=== PATIENT | male | born 1975 | race Two or more races ===

== ENCOUNTER 2020-03-24 17:16 | Outpatient (REF) | payer OTHER, SELFPAY | END 2020-03-24 17:17 | disposition home or self-care (01) | LOC: HO.LAB 17:16 | PROVIDERS: Visit Provider Internal Medicine | DX: Z20.828 Contact with and (suspected) exposure to other viral communicable diseases (principal) | CPT/HCPCS: C9803; U0003 ==

== ENCOUNTER 2020-07-25 22:03 | Emergency (ER) | payer OTHER, SELFPAY ==
[2020-07-25 22:17] VITALS: BP 119/79; PULSE 98; RESP 16; TEMP 36.7; O2SAT 98; BMI 28.0
--- NOTE | 2020-07-25 22:52 | PC.NURSE ---
4 DAYS OF EYE PAIN, FEELS LIKE ROCKS IN EYES, DRAINAGE CREAM COLOR.
--- NOTE | 2020-07-25 23:07 | ED.EYEPROB ---
HPI - Eye Problem General Chief complaint: Eye Problems Stated complaint: allergies Time Seen by Provider: 07/25/20 22:32 Source: patient Mode of arrival: ambulatory Limitations: language barrier (Brazilian speaking only, line maintenance technician used to obtain information) History of Present Illness HPI Narrative: 44-year-old male who presents emergency department for evaluation of bilateral eye redness, pruritus, discharge and sore throat. The patient states that 6 days prior he got his 1st Moderna COVID-19 vaccination. He states that later that evening he developed itchiness and redness of his eyes which has gotten progressively worse. He states that he does have some slight pain behind both eyes, he states that the pain is mild. He believes that his eyes are also swollen. He states these had some blurred vision but is able to read and see without any difficulty. The patient took some Claritin with no relief his symptoms. He is concerned that his symptoms got worse, therefore came to emergency department for evaluation. The patient does not were contact lenses, he does not wear glasses. He believes that he may have gotten some dust in his eyes when he was rolling up a carpet, 6 days prior to evaluation. Related Data Previous Rx's Medication Instructions Recorded prednisone 60 mg PO DAILY 7 Days #21 tab 07/25/20 sulfacetamide-prednisolone 2 drp OPHTHALMIC (EYE) Q4H #10 ml 07/25/20 [Blephamide] Allergies Allergy/AdvReac Type Severity Reaction Status Date / Time No Known Allergies Allergy Verified 07/25/20 22:19 [No Known Allergies*] Review of Systems Review of Systems: Yes all other systems are reviewed and are negative [facility] Past Medical History [facility] Narrative: The patient has no medical problems. He denies tobacco use, he states he occasionally drinks alcohol, denies drug use. Medical History (Updated 07/25/20 @ 23:17 by Drake Reddy MD) Patient denies significant medical history Social History Social History Advance Directives: No Physical Exam Vital Signs: Vital Signs: Last Vital Signs Temp 98.0 F 07/25/20 22:17 Pulse 98 07/25/20 22:17 Resp 16 07/25/20 22:17 BP 119/79 07/25/20 22:17 Pulse Ox 98 07/25/20 22:17 Body Mass Index 28.0 Const: General: cooperative Orientation/consciousness: oriented to person and oriented to place Limitations: no limitations HENMT: Head: Yes normal to inspection, Yes normocephalic and Yes atraumatic Ears: external ears normal General nose exam: Normal external nose present Face and sinus: Yes normal facial exam Mouth: Normal oral and palatal mucosa present Throat: Yes posterior oropharynx normal Eyes: Other: Visual acuity was left 20/40, right 20/40 Periorbital: periorbital findings normal Eyelids: Yes eyelids normal Conjunctivae: conjunctival abnormal bilateral (Erythematous, swollen conjunctiva) discharge (Thick, yellowish discharge) Sclerae: sclerae normal Corneas: corneas normal Pupils: Equal, round and reactive pupils present Direct Ophthalmoscopy: normal light reflex Neck: Neck: Yes full ROM, Yes no lymphadenopathy, Yes no meningeal signs, Yes trachea midline, Yes supple and Yes other (The patient has a nonspecific dermatitis posterior neck) Chest: Chest palpation & inspection: normal inspection of the chest and normal palpation of entire chest wall Resp: Effort & Inspection: normal respiratory effort and able to speak in complete sentences Auscultation: clear to auscultation bilaterally Cardio: Rate: regular rate Rhythm: regular rhythm Heart sounds: S1 normal heart sound present, S2 normal heart sound present and no murmurs GI: Inspection: Yes normal to inspection Palpation (GI): Soft to palpation, nontender, no guarding, not rigid and No hepatosplenomegaly present : General: Yes no CVA tenderness Back/Spine/Pelvis: Back: no CVA tenderness Cervical Spine: normal cervical lordosis Thoracic/Lumbar Spine: thoracic and lumbar spine normal to inspection Skin: Lesions: no lesions Rashes: no rashes Wounds: no wounds Neuro: General: oriented to person, oriented to place and no meningeal signs Cranial nerves: Yes CN's II-XII intact bilaterally and Yes Equal, round and reactive pupils present Cognition (Neuro): normal cognition Motor exam (neuro): 5/5 motor strength present throughout Extrem: General: Yes normal to inspection and Yes full ROM Psych: Appearance: well kempt Mental Status: mental status grossly normal Speech and movement: Normal speech and movement present Affect: normal affect Attitude: cooperative Thought process: Normal thought process present Thought content: Normal thought content present Course Course Course Narrative: 44-year-old male who presents emergency department for evaluation 6 days of erythema, discharge, pruritus to bilateral eyes and sore throat. Physical examination revealed bilateral swollen, erythematous conjunctiva with a purulent-appearing discharge. The patient's visit acute these were 20/40 in both eyes. The patient also has a nonspecific dermatitis to these posterior aspect of his neck. The patient did get Moderna COVID-19 vaccination 6 days prior to evaluation. Patient's findings are consistent with bilateral conjunctivitis. At this time the patient will be treated for both an infectious and inflammatory conjunctivitis with Bleph 10 eyedrops and oral prednisone. The patient will need to follow-up with an allied health instructor in 2-3 days for re-evaluation. Discharge Plan Discharge Clinical Impression: Bacterial conjunctivitis, Dermatitis Patient Disposition: Home, Self-Care Instructions: Conjunctivitis (ED) Additional Instructions: Your eye findings are consistent with an allergic and bacterial conjunctivitis. Take prednisone 20 mg pills, 3 pills once a day for 7 days. Use the Bleph 10 Prescriptions: New Blephamide 10-0.2 % drops,suspension 2 drp ophthalmic (eye) Q4H Qty: 10 RF: 0 prednisone 20 mg tablet 60 mg PO DAILY 7 Days Qty: 21 RF: 0 Referrals: Guy Alba [Physician] - 3 days Print Language: Brazilian
[2020-07-25] MEDS: predniSONE 20 MG TABLET 60 MG PO (23:36)
== END 2020-07-26 00:12 | disposition home or self-care (01) ==
PROVIDERS: Emergency Provider Emergency Medicine Emergency Medical Services
DX: H10.9 Unspecified conjunctivitis (principal); L30.9 Dermatitis, unspecified
CPT/HCPCS: 99283; 99284

== ENCOUNTER 2020-08-17 06:01 | Emergency (ER) | payer OTHER, SELFPAY ==
--- NOTE | 2020-08-17 06:21 | PC.NURSE ---
TALKING WITH PATIENT REPORTING RECENTLY HERE FOR SIMILAR COMPLAINT. HAVING EYE REDNESS, STATING OUT OF EYE SOLUTION HE PREVIOUS RECEIVED AT LAST VISIT EARLIER THIS MONTH. PATIENT REPORTS BEING UNABLE TO FOLLOW UP WITH EYE DOCTOR DUE TO LACK OF INSURANCE. PATIENTS NEUROS INTACT, NO DEFICIT NOTED.
[2020-08-17 07:15] VITALS: BP 115/76; PULSE 51; RESP 16; TEMP 36.4; O2SAT 97; BMI 26.5
--- NOTE | 2020-08-17 07:50 | ED.EYEPROB ---
HPI - Eye Problem General Chief complaint: Eye Problems Stated complaint: Blurry vision Time Seen by Provider: 08/17/20 07:42 Source: patient Mode of arrival: ambulatory Limitations: no limitations History of Present Illness HPI Narrative: Patient comes emergency room complaining of itchy eyes. 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 Patient states he was seen here at the beginning of July, he was prescribed oral prednisone and blood from my drops. Patient states that his insurance would not cover the eyedrops and could not afford the drops. Patient states that over last 3 weeks, he has had ongoing itchy eyes, watery eyes. Patient states that for the last 2-3 weeks his eye vision has been blurry, but he still able to see well enough to do his daily activities. Related Data Previous Rx's Medication Instructions Recorded prednisone 60 mg PO DAILY 7 Days #21 tab 07/25/20 sulfacetamide-prednisolone 2 drp OPHTHALMIC (EYE) Q4H #10 ml 07/25/20 [Blephamide] ketotifen fumarate [Allergy Eye 1 drp OPHTHALMIC (EYE) Q12H PRN #5 08/17/20 (ketotifen)] ml Allergies Allergy/AdvReac Type Severity Reaction Status Date / Time No Known Allergies Allergy Verified 07/25/20 22:19 [No Known Allergies*] Review of Systems Review of Systems: Constitutional : No Weight loss, No Fever, No Chills, No Night Sweats, No Fatigue, No Malaise ENT/Mouth : No Hearing loss, No Ear Pain, No Nasal Congestion, No Sinus Pain, No Hoarseness, No sore throat, No Rhinorrhea, No Swallowing Difficulty Eyes: No Eye Pain, No Swelling, complaining of bilateral eye redness, no foreign body sensation, itchy/watery eyes Cardiovascular : No Chest Pain, No SOB, No Dyspnea on Exertion, No Orthopnea, No Edema, No Palpitations Respiratory : No Cough, No Sputum, No Wheezing, No Smoke Exposure, No Dyspnea Gastrointestinal : No Nausea, No Vomiting, No Diarrhea, No Constipation, No abdominal Pain, No Hematochezia, No Melena Genitourinary : no irregular bleeding, No Dysuria, No Urinary Frequency, No Hematuria, No Urinary Incontinence, No Urgency, No Flank Pain, No Urinary Flow Changes, No Hesitancy Musculoskeletal : No joint pain, No Myalgias, No Joint Swelling Skin : No Skin Lesions, No rash Neuro : No Weakness, No Numbness, No Paresthesias, No Loss of Consciousness, No Dizziness, No Headache Psych : No Anxiety/Panic, No Depression, No SI/HI/AH/VH, No Social Issues, Heme/Lymph: No Bruising, No Bleeding,No Lymphadenopathy Endocrine : No Polyuria, No Polydipsia, No Temperature Intolerance [facility] Past Medical History Medical History Patient denies significant medical history Social History Social History Advance Directives: No Advance Directives Information Provided: No Physical Exam Vital Signs: Vital Signs: Last Vital Signs Temp 97.6 F 08/17/20 07:15 Pulse 46 L 08/17/20 08:18 Resp 18 08/17/20 08:18 BP 124/86 08/17/20 08:18 Pulse Ox 99 08/17/20 08:18 Body Mass Index 26.5 Appearance: Alert. Oriented X3. No acute distress. Eyes: Pupils equal, round and reactive to light. Mildly Erythematous bilaterally, no discharge. Bilateral pterygium ENT: Pharynx normal. Neck: Normal inspection. Neck supple. No lymph nodes noted. No crepitus CVS: Normal heart rate and rhythm. Pulses normal. Normal S1 and S2 Respiratory: No respiratory distress. Breath sounds normal. No Wheezing. No rales Abdomen: Soft and nontender. No rigidity. No distention. good BS x4 Skin: Skin warm and dry. Normal skin color. Normal skin turgor. Extremities: No lower extremity edema. No lower extremity edema. No Lacerations. No Rash Neuro: Oriented X 3. No motor deficit. No sensory deficit. Moving all extermities. No slurred speech. Course Course Course Narrative: On previous visit, patient's visual acuity test on the right on the left was 20/40 bilaterally, this time, 20/50 R, 20/70L I discussed with the patient that at this time he does not seem to have infection, it has been well over 3 weeks since he was diagnosed with conjunctivitis. With antibiotic, patient no longer having any discharge which he did 3 weeks ago. 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 I discussed with the patient that he needs to follow up with the software team leader, patient also would like to be seen by the software team leader for chronic pterygium. Patient now states that his blurry vision has been ongoing for over a month now. MDM - Eye Problem Lab Data Labs: Lab Results 08/17/20 Range/Units 08:00 POC Glucose 102 (60-115) mg/dL Discharge Plan Discharge Clinical Impression: Chemosis of conjunctiva of both eyes Patient Disposition: Home, Self-Care Instructions: Blurred Vision (ED) Additional Instructions: Please call Ophthalmology today to schedule an appointment. Please follow-up with your primary care physician tomorrow. If you have any worsening or new symptoms, please return to the emergency room or call 911 Prescriptions: New ketotifen fumarate [Allergy Eye (ketotifen)] 0.025 % (0.035 %) drops 1 drp ophthalmic (eye) Q12H PRN (Reason: allergy symptoms) Qty: 5 RF: 0 No Action Blephamide 10-0.2 % drops,suspension 2 drp ophthalmic (eye) Q4H Qty: 10 RF: 0 prednisone 20 mg tablet 60 mg PO DAILY 7 Days Qty: 21 RF: 0 Referrals: Guy Alba [Physician] - 08/17/20 9:09 am
[2020-08-17 08:12] LABS: Glucose, Whole Blood 102 mg/dL (60-115)
[2020-08-17 08:18] VITALS: BP 124/86; PULSE 46; RESP 18; O2SAT 99
== END 2020-08-17 09:41 | disposition home or self-care (01) ==
PROVIDERS: Emergency Provider Emergency Medicine
DX: H11.423 Conjunctival edema, bilateral (principal); H11.0 Pterygium of eye
CPT/HCPCS: 82947; 99283; 99284

== ENCOUNTER 2020-09-21 10:00 | Emergency (ER) | payer MEDICAID, SELFPAY ==
[2020-09-21 10:07] VITALS: BP 124/86; PULSE 92; RESP 16; TEMP 37; O2SAT 98; BMI 25.8
[2020-09-21] MEDS: Lidocaine HCl 1%/Epi 1:100,000 20 ML VIAL 30 ML INFILTRATI (12:25)
--- NOTE | 2020-09-21 12:35 | ED_ITS ---
HPI - Skin/Abscess/Foreign Bdy General Chief complaint: Skin/Abscess/Foreign Body Stated complaint: cyst Time Seen by Provider: 09/21/20 11:14 Source: patient History of Present Illness HPI narrative: 45-year-old male with no significant past medical history prese nting to the ED complaining of abscess / erythema to left thigh x2 days. denies fever, chills, drainage from area, scrotal pain/ swelling, dysuria, abdominal pain MD complaint: abscess/boil Related Data Previous Rx's Medication Instructions Recorded prednisone 60 mg PO DAILY 7 Days #21 tab 07/25/20 sulfacetamide-prednisolone 2 drp OPHTHALMIC (EYE) Q4H #10 ml 07/25/20 [Blephamide] ketotifen fumarate [Allergy Eye 1 drp OPHTHALMIC (EYE) Q12H PRN #5 08/17/20 (ketotifen)] ml acetaminophen [Tylenol Extra 500 mg PO Q6H PRN #20 tab 09/21/20 Strength] cephalexin 500 mg PO QID 7 Days #28 cap 09/21/20 doxycycline hyclate 100 mg PO BID 7 Days #14 tab 09/21/20 ibuprofen 800 mg PO Q8H PRN #14 tab 09/21/20 Allergies Allergy/AdvReac Type Severity Reaction Status Date / Time No Known Allergies Allergy Verified 07/25/20 22:19 [No Known Allergies*] Review of Systems Review of Systems: Constitutional: No Fever, No Chills Gastrointestinal: No Nausea, No Vomiting, No Abdominal pain Genitourinary: No Dysuria, No scrotal swelling/pain Musculoskeletal: No joint pain, No Myalgias, No Joint Swelling Skin: +abscess Yes all other systems are reviewed and are negative [facility] Past Medical History Attestation statement: The following information was validated with the patient. Medical History Patient denies significant medical history Social History Social History Alcohol intake: never Advance Directives: No Advance Directives Information Provided: No Physical Exam Vital Signs: Vital Signs: Last Vital Signs Temp 98.6 F 09/21/20 10:07 Pulse 92 09/21/20 10:07 Resp 16 09/21/20 10:07 BP 124/86 09/21/20 10:07 Pulse Ox 98 09/21/20 10:07 Body Mass Index 25.8 Const: General: cooperative, healthy appearing and comfortable Orientation/consciousness: patient oriented x3 Limitations: no limitations HENMT: Head: Yes normal to inspection Ears: hearing grossly normal bilaterally General nose exam: Normal external nose present Face and sinus: Yes normal facial exam Eyes: General: appearance normal, both eyes and all related structures EOM: EOMs intact bilaterally Neck: Neck: Yes normal visual inspection Resp: Effort & Inspection: normal respiratory effort Cardio: Rate: regular rate GI: Inspection: Yes normal to inspection Palpation (GI): Soft to palpation Skin: Other: + indurated abscess with overlying cellulitis noted to left inner thigh with central fluctuance. No drainage or pointing. No scrotal /perineum involvement Rashes: no rashes Neuro: General: patient oriented x3 Extrem: General: Yes normal to inspection Procedures Abscess I/D Site: lower extremity Side (if applicable): left Local Anesthetic: lidocaine 1% and with epi Amount of anesthesia used (mL): 5 Technique: incised with blade Sent for culture/gram staining?: No Packing used?: none Complications: pain MDM - Skin/Abscess/Foreign Bdy MDM Narrative Medical decision making narrative: 45-year-old male with no significant past medical history presenting to the ED complaining of abscess / erythema to left thigh x2 days. on exam VSS, NAD/ well-appearing, abscess noted to left inner thigh with overlying cellulitis. Will perform I & D and Rx abx Discharge Plan Discharge Clinical Impression: Abscess of skin or subcutaneous tissue, Cellulitis Patient Disposition: Home, Self-Care Instructions: Cellulitis (ED), Abscess (ED) Additional Instructions: your abscess was drained today in the emergency department. Keflex and doxycycline a antibiotic, take as prescribed. I would you need to be re- evaluated in 2 days. If area is passing the lines I created, redness is spreading, area continues to drain, you are having fevers return to the ED sooner. dwyer absceso fue drenado hoy en el departamento de emergencias. Keflex y doxiciclina, un antibi?mabel, t?johnson seg?n lo prescrito. Necesitar?a ser reevaluado en 2 d?as. Si el ?josefa est? pasando las l?neas que cre?, el enrojecimiento se est? extendiendo, el ?josefa contin?a drenando, la fiebre regresa antes al servicio de urgencias. Prescriptions: New acetaminophen [Tylenol Extra Strength] 500 mg tablet 500 mg PO Q6H PRN (Reason: pain or fever) Qty: 20 RF: 0 cephalexin 500 mg capsule 500 mg PO QID 7 Days Qty: 28 RF: 0 doxycycline hyclate 100 mg tablet 100 mg PO BID 7 Days Qty: 14 RF: 0 ibuprofen 800 mg tablet 800 mg PO Q8H PRN (Reason: pain) Qty: 14 RF: 0 No Action ketotifen fumarate [Allergy Eye (ketotifen)] 0.025 % (0.035 %) drops 1 drp ophthalmic (eye) Q12H PRN (Reason: allergy symptoms) Qty: 5 RF: 0 Blephamide 10-0.2 % drops,suspension 2 drp ophthalmic (eye) Q4H Qty: 10 RF: 0 prednisone 20 mg tablet 60 mg PO DAILY 7 Days Qty: 21 RF: 0 Referrals: [facility] [Primary Care Provider] - 2 days ( For re-evaluation) Stand Alone Forms: Work/School Release Discharge Date/Time: 09/21/20 12:38 Print Language: Romansh
== END 2020-09-21 12:38 | disposition home or self-care (01) ==
PROVIDERS: Emergency Provider Emergency Medicine Emergency Medical Services
DX: L02.416 Cutaneous abscess of left lower limb (principal); L03.116 Cellulitis of left lower limb
CPT/HCPCS: 10060; 99283; 99284

== ENCOUNTER 2020-09-23 17:20 | Emergency (ER) | payer MEDICAID, SELFPAY ==
[2020-09-23 18:15] VITALS: BP 139/89; PULSE 62; RESP 18; TEMP 36.9; O2SAT 99; BMI 25.8
[2020-09-23 19:02] LABS: Hemoglobin 13.7 g/dl (14.0-18.0); Mean Corpuscular HGB Conc 32.6 g/dl (31.0-36.0); Mean Corpuscular Hemoglobin 30.1 pg (27.0-33.0); Mean Corpuscular Volume 92.3 fL (80-98); Mean Platelet Volume 9.1 fL (9.4-12.4); Platelet Count 318 X10*3/uL (160-400); Red Blood Count 4.55 X10*6/uL (4.60-5.80); Red Cell Distribution Width 12.4 % (11.0-16.0); White Blood Count 13.8 X10*3/uL (4.8-10.8)
[2020-09-23 19:36] VITALS: BP 138/85; PULSE 59; RESP 16; O2SAT 100
[2020-09-23 19:37] LABS: Anion Gap 14 (12-20); Blood Urea Nitrogen 12 mg/dL (9-16); Calcium 9.9 mg/dL (8.4-10.2); Carbon Dioxide 27 mmol/L (22-29); Chloride 103 mmol/L (96-108); Creatinine Clr Calc Pharmacy 126.7; Estimated Glomerular Filt Rate > 60; Glucose Random 82 mg/dL (60-115); Potassium 4.4 mmol/L (3.3-5.1); Sodium 140 mmol/L (135-145)
--- NOTE | 2020-09-23 19:42 | ED.SKABFB ---
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 Patient denies any fever or chills Related Data Previous Rx's Medication Instructions Recorded prednisone 60 mg PO DAILY 7 Days #21 tab 07/25/20 sulfacetamide-prednisolone 2 drp OPHTHALMIC (EYE) Q4H #10 ml 07/25/20 [Blephamide] ketotifen fumarate [Allergy Eye 1 drp OPHTHALMIC (EYE) Q12H PRN #5 08/17/20 (ketotifen)] ml acetaminophen [Tylenol Extra 500 mg PO Q6H PRN #20 tab 09/21/20 Strength] cephalexin 500 mg PO QID 7 Days #28 cap 09/21/20 doxycycline hyclate 100 mg PO BID 7 Days #14 tab 09/21/20 ibuprofen 800 mg PO Q8H PRN #14 tab 09/21/20 Allergies Allergy/AdvReac Type Severity Reaction Status Date / Time No Known Allergies Allergy Verified 07/25/20 22:19 [No Known Allergies*] Review of Systems Review of Systems: Yes all other systems are reviewed and are negative PMFSH Past Medical History Medical History Patient denies significant medical history Social History Social History Alcohol intake: never Advance Directives: No Physical Exam Vital Signs: Vital Signs: Last Vital Signs Temp 98.5 F 09/23/20 18:15 Pulse 59 09/23/20 19:36 Resp 16 09/23/20 19:36 BP 138/85 09/23/20 19:36 Pulse Ox 100 09/23/20 19:36 Body Mass Index 25.8 Const: General: comfortable and no acute distress Extrem: Upper/lower leg/hip images: 1. abscess in medial aspect of left thigh with induration and abscess opening is surrounding cellulitis no crepitus Procedures Abscess I/D Site: lower extremity Side (if applicable): left Local Anesthetic: lidocaine 2% Amount of anesthesia used (mL): 5 Technique: other ( using forceps) Amount of fluid expressed (mL): 1 Sent for culture/gram staining?: No Irrigation: No Packing used?: iodoform MDM - Skin/Abscess/Foreign Bdy Lab Data Result diagrams: 09/23/20 18:55 09/23/20 18:55 Labs: Lab Results 09/23/20 09/23/20 Range/Units 18:55 18:55 WBC 13.8 H (4.8-10.8) X10*3/uL RBC 4.55 L (4.60-5.80) X10*6/uL Hgb 13.7 L (14.0-18.0) g/dl Hct 42.0 (42-52) % MCV 92.3 (80-98) fL MCH 30.1 (27.0-33.0) pg MCHC 32.6 (31.0-36.0) g/dl RDW 12.4 (11.0-16.0) % Plt Count 318 (160-400) X10*3/uL MPV 9.1 L (9.4-12.4) fL Absolute Nucleated RBC 0.000 (0.0-0.012) X10*3/uL Nucleated RBC % (auto) 0.0 (0.0-0.2) /100WBC Sodium 140 (135-145) mmol/L Potassium 4.4 (3.3-5.1) mmol/L Chloride 103 (96-108) mmol/L Carbon Dioxide 27 (22-29) mmol/L Anion Gap 14 (12-20) BUN 12 (9-16) mg/dL Creatinine 0.76 (0.5-1.4) mg/dL Estim Creat Clear Calc 126.7 Estimated GFR > 60 Random Glucose 82 (60-115) mg/dL Calcium 9.9 (8.4-10.2) mg/dL Discharge Plan Discharge Prescriptions: No Action ketotifen fumarate [Allergy Eye (ketotifen)] 0.025 % (0.035 %) drops 1 drp ophthalmic (eye) Q12H PRN (Reason: allergy symptoms) Qty: 5 RF: 0 acetaminophen [Tylenol Extra Strength] 500 mg tablet 500 mg PO Q6H PRN (Reason: pain or fever) Qty: 20 RF: 0 cephalexin 500 mg capsule 500 mg PO QID 7 Days Qty: 28 RF: 0 doxycycline hyclate 100 mg tablet 100 mg PO BID 7 Days Qty: 14 RF: 0 ibuprofen 800 mg tablet 800 mg PO Q8H PRN (Reason: pain) Qty: 14 RF: 0 Blephamide 10-0.2 % drops,suspension 2 drp ophthalmic (eye) Q4H Qty: 10 RF: 0 prednisone 20 mg tablet 60 mg PO DAILY 7 Days Qty: 21 RF: 0
[2020-09-23] MEDS: Lidocaine HCl 2 % MPF 5 ML VIAL INFILTRATI (20:11)
== END 2020-09-23 20:56 | disposition home or self-care (01) ==
PROVIDERS: Emergency Provider Internal Medicine
DX: L02.416 Cutaneous abscess of left lower limb (principal)
CPT/HCPCS: 10060; 36415; 80048; 85027; 99284

== ENCOUNTER 2021-10-31 12:02 | Emergency (ER) | payer MEDICAID, SELFPAY ==
--- NOTE | ~2021-10-31 | XR_ITS ---
EXAMINATION: XR FOOT, RIGHT CLINICAL INFORMATION: Pain with ambulation. Question foreign body. COMPARISON: None TECHNIQUE: AP, lateral, and oblique views of the right foot. FINDINGS: Joint spaces are maintained. No fracture or dislocation. Lisfranc alignment is within normal limits. Small well-corticated bone fragment projects along the dorsal talonavicular joint likely sequela of remote avulsive injury. Small soft tissue wound defect is seen in the plantar aspect of the heel. No radiodense foreign body. No tracking soft tissue gas. XR/XR foot RT 2V IMPRESSION: 1. Small soft tissue defect/laceration in the plantar aspect of the heel. No tracking soft tissue gas or dense foreign body identified. 2. No acute osseous injury.
[2021-10-31 13:42] VITALS: BP 114/83; PULSE 82; RESP 18; TEMP 36.8; O2SAT 98; BMI 25.8
--- NOTE | 2021-10-31 15:27 | ED_ITS ---
HPI - Extremity Problem General Chief complaint: Extremity Injury, Lower Stated complaint: R foot pain Time Seen by Provider: 10/31/21 15:10 Source: patient Mode of arrival: ambulatory Limitations: no limitations History of Present Illness HPI Narrative: Patient presents emergency department for evaluation of right foot pain. He says this is been ongoing for about 1 week. Pain is diffuse across the midfoot. It is described as a burning sensation that is made worse with ambulation. He states that he noticed a small dot on the bottom of his heel so he attempted to open the area, states he was unable to get anything out. He denies any known injury, or previously having stepped on something. Denies numbness or tingling to the extremities. Denies polyuria, polydipsia, polyphagia. Denies calf pain. Denies swelling. Denies rash. Denies any additional musculoskeletal pain or joint pain. Related Data Previous Rx's Medication Instructions Recorded prednisone 20 mg tablet 60 mg PO DAILY 7 days #21 tabs 07/25/20 sulfacetamide 10 %-prednisolone 2 drp ophthalmic (eye) Q4H #10 mL 07/25/20 0.2 % eye drops,suspension (Blephamide) ketotifen fumarate 0.025 % (0.035 1 drp ophthalmic (eye) Q12H PRN 08/17/20 %) eye drops (Allergy Eye allergy symptoms #5 mL (ketotifen)) acetaminophen 500 mg tablet 500 mg PO Q6H PRN pain or fever 09/21/20 (Tylenol Extra Strength) #20 tabs cephalexin 500 mg capsule 500 mg PO QID 7 days #28 caps 09/21/20 doxycycline hyclate 100 mg tablet 100 mg PO BID 7 days #14 tabs 09/21/20 ibuprofen 800 mg tablet 800 mg PO Q8H PRN pain #14 tabs 09/21/20 sulfamethoxazole 800 1 tab PO BID #20 tabs 09/23/20 mg-trimethoprim 160 mg tablet (Bactrim DS) Allergies Allergy/AdvReac Type Severity Reaction Status Date / Time No Known Allergies Allergy Verified 10/31/21 13:42 [No Known Allergies*] Review of Systems Review of Systems: Musculoskeletal: Positive foot pain Yes all other systems are reviewed and are negative PMFSH Past Medical History Attestation statement: The following information was validated with the patient. Source: old records reviewed Medical History Patient denies significant medical history Social History Social History Alcohol intake: never Advance Directives: No Advance Directives Information Provided: Yes Physical Exam Vital Signs: Vital Signs: Last Vital Signs Temp 98.2 F 10/31/21 13:42 Pulse 82 10/31/21 13:42 Resp 18 10/31/21 13:42 BP 114/83 10/31/21 13:42 Pulse Ox 98 10/31/21 13:42 BMI result Body Mass Index 25.8 Vital signs have been reviewed as normal and appeared to be correct. Blood pressure normal.? Heart rate normal.? Respiration rate normal. Temperature normal.? Oxygen saturation normal. Appearance: Alert.?Oriented to person, place and time. No acute distress.?Normal affect. Eyes: Pupils equal, round and reactive to light.? ENT: Pharynx normal.?? Neck: Normal inspection.? Neck supple.?? CVS: Heart sounds normal. Normal heart rate and rhythm.? Pulses normal.?? Respiratory: No respiratory distress.? Lung sounds clear to auscultation bilaterally?? Abdomen: Soft and non-tender. Normoactive bowel sounds. Skin: Skin warm and dry.? Normal skin color.? Right plantar heel wound, no surrounding erythema, no bleeding, no exudate, no warmth. Extremities: No lower extremity edema.? No calf ttp. 2+ DP/PT pulse bilaterally. Mild tenderness upon palpation to foorfoot and heel particularly with foot in dorsiflexion. Neuro: Moves all extremities spontaneously. Sensation intact bilaterally. CN II- XII intact. No focal neuro deficits. Ambulates with antalgic gait Course Course Course Narrative: Patient is a 46-year-old male presented to emergency department for evaluation of atraumatic right foot pain, uncertainty whether he had stepped on any foreign body. XR obtained reveals no acute fracture, dislocation, or radiopaque foreign body. Physical exam not consistent with cellulitis, wound is clean and dry, cleansed with saline, bacitracin and a bandage applied. Pain is mostly localized to the heel and forefoot, is made worse with weight-bearing, symptoms seem consistent with plantar fasciitis. Advised patient to consider purchasing new footwear, purchasing shoe/sole inserts to aid in comfort, avoid walking barefoot, use of Tylenol and ibuprofen, follow-up with primary care provider, discussed possible referral to Podiatry in the future should symptoms persist MDM - Extremity (Nontraumatic) Medical Records Attestation: I reviewed the patient's medical records. Imaging Data xr foot: Radiologist's impression: XR/XR foot RT 2V IMPRESSION: ? 1. Small soft tissue defect/laceration in the plantar aspect of the heel. No tracking soft tissue gas or dense foreign body identified. 2. No acute osseous injury. Discharge Plan Discharge Clinical Impression: Heel pain Patient Disposition: Home, Self-Care Additional Instructions: The x-ray of your foot was normal. Apply ice, consider purchasing new shoes, or shoe inserts that can eating comfortably he will, avoid walking barefoot. You can take ibuprofen 200 mg, 3 tablets (600mg) every 6-8 hours as needed for pain. Clean your foot twice daily with soap and warm water. Apply bacitracin and cover with a bandage. If you develop swelling, redness, warmth, drainage from the wound should be re-evaluated. Please contact your primary care provider to schedule a follow-up visit. La radiograf?a de dwyer pie fue normal. Aplique hielo, considere comprar zapatos nuevos o plantillas que le permitan comer c?modamente, evite caminar descalzo. Puede lyndsay ibuprofeno 200 mg, 3 tabletas (600 mg) cada 6-8 horas seg?n sea necesario para el dolor. Limpie dwyer pie dos veces al d?a con jab?n y agua tibia. Aplique bacitracina y cubra con un vendaje. Si desarrolla hinchaz?n, enrojecimiento, calor, el drenaje de la herida debe ser reevaluado. Comun?quese con dwyer proveedor de atenci?n primaria para programar jada visita de seguimiento. Prescriptions: No Action ketotifen fumarate [Allergy Eye (ketotifen)] 0.025 % (0.035 %) drops 1 drp ophthalmic (eye) Q12H PRN (Reason: allergy symptoms) Qty: 5 0RF acetaminophen [Tylenol Extra Strength] 500 mg tablet 500 mg PO Q6H PRN (Reason: pain or fever) Qty: 20 0RF cephalexin 500 mg capsule 500 mg PO QID 7 Days Qty: 28 0RF doxycycline hyclate 100 mg tablet 100 mg PO BID 7 Days Qty: 14 0RF ibuprofen 800 mg tablet 800 mg PO Q8H PRN (Reason: pain) Qty: 14 0RF sulfamethoxazole-trimethoprim [Bactrim DS] 800-160 mg tablet 1 tab PO BID Qty: 20 0RF Blephamide 10-0.2 % drops,suspension 2 drp ophthalmic (eye) Q4H Qty: 10 0RF Rx Instructions: Both eyes, administer while awake prednisone 20 mg tablet 60 mg PO DAILY 7 Days Qty: 21 0RF Interventions: ED Discharge Assessment Last Done: 10/31/21 17:22 Discharge Date/Time: 10/31/21 17:25 Print Language: Macanese
== END 2021-10-31 17:25 | disposition home or self-care (01) ==
PROVIDERS: Emergency Provider Emergency Medicine
DX: M79.671 Pain in right foot (principal)
CPT/HCPCS: 73620; 99282; 99283

== ENCOUNTER 2021-12-14 09:22 | Emergency (ER) | payer MEDICAID, SELFPAY ==
--- NOTE | ~2021-12-14 | XR_ITS ---
EXAMINATION: XR CERVICAL SPINE CLINICAL INFORMATION: Bilateral neck pain COMPARISON: None TECHNIQUE: 5 views of the cervical spine FINDINGS: There are no prevertebral soft tissue or bony abnormalities demonstrated. No compression fractures or subluxations are identified. Alignment is maintained at the atlanto-axial articulation. The disc spaces are preserved. No endplate changes are seen. The prevertebral soft tissues are normal. The foramina are patent without bony encroachment. XR/XR cervical spine 4V IMPRESSION: No significant bony abnormality of the cervical spine identified.
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
--- NOTE | 2021-12-14 10:08 | PC.NURSE ---
PT REFUSING TO GETT OFF PHONE FOR TRIAGE. WILL BE TRIAGED WHEN IN ROOM
[2021-12-14 10:35] VITALS: BP 119/75; PULSE 80; RESP 16; TEMP 36.6; O2SAT 96; BMI 25.8
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
== END 2021-12-14 12:40 | disposition home or self-care (01) ==
PROVIDERS: Emergency Provider Emergency Medicine
DX: S13.4XXA Sprain of ligaments of cervical spine, initial encounter (principal); V43.52XA Car driver injured in collision with other type car in traffic accident, initial encounter; R07.81 Pleurodynia; M79.10 Myalgia, unspecified site; Y93.89 Activity, other specified; Y92.414 Local residential or business street as the place of occurrence of the external cause; Y99.9 Unspecified external cause status
CPT/HCPCS: 71101; 72050; 99283

== ENCOUNTER 2022-05-08 13:40 | Emergency (ER) | payer MEDICAID, SELFPAY | END 2022-05-08 18:57 | disposition left against medical advice (07) | PROVIDERS: Emergency Provider Emergency Medicine | DX: H57.9 Unspecified disorder of eye and adnexa (principal) ==